=== PATIENT | male | born 1975 | race African-American/Black ===

== ENCOUNTER 2016-09-03 14:55 | Emergency (ER) | payer SELFPAY ==
[~2016-09-03] VITALS: Ht 185.4 cm; Wt 87.2 kg
[2016-09-03 14:56] VITALS: BP 136/87; PULSE 70; RESP 14; TEMP 98.2; O2SAT 98
--- NOTE | 2016-09-03 15:11 | PD ---
HPI . "I want HIV testing" Chief Complaint: Medical Clearance Time Seen by Provider: 15:09 Travel History International Travel<30 days: No Contact w/Intl Traveler<30days: No Traveled to known affect area: No History of Present Illness HPI 40-year-old male with no significant medical history here requesting HIV testing. Patient tells me has not been tested in the last 6 months and he usually will have testing done every 6 months. He is requesting HIV test. He has no complaints. He has no exposure issues. He tells me he feels good. History Past Medical Histgory Hx Cancer: No Hx Chemotherapy: No Hx Radiation Therapy: No Social History Alcohol Use: Yes (socially) Tobacco Use: Yes (1 ppd) Allergies-Medications (Allergen,Severity, Reaction): Coded Allergies: No Known Allergies (Unverified , 09/03/16) Reported Meds & Prescriptions Reported Meds & Active Scripts Active No Active Prescriptions or Reported Medications Review of Systems General / Constitutional: No: Fever Eyes: No: Visual changes HENT: No: Headaches Cardiovascular: No: Chest Pain or Discomfort Respiratory: No: Shortness of Breath Gastrointestinal: No: Abdominal Pain Genitourinary: No: Dysuria Musculoskeletal: No: Pain Skin: No Rash Neurologic: No: Weakness Psychiatric: No: Depression Endocrine: No: Polydipsia Hematologic/Lymphatic: No: Easy Bruising Physical Exam Narrative GENERAL: AAO x 3, no acute distress, Well-nourished, well-developed patient. SKIN: Warm and dry. No visible rashes or bruising. HEAD: Normocephalic and atraumatic. EYES: No scleral icterus. No injection or drainage. ENT: No nasal drainage noted. Mucous membranes pink. Airway patent. NECK: Supple, trachea midline. No JVD. CARDIOVASCULAR: Regular rate and rhythm without murmurs, gallops, or rubs. RESPIRATORY: Breath sounds equal bilaterally. No accessory muscle use. No rhonchi or rales. GASTROINTESTINAL:normal visual inspection. EXTREMITIES: No cyanosis or edema. BACK: Nontender without obvious deformity. No CVA tenderness. PSYCH: AAO x 3, normal affect. Data Data Last Documented VS Vital Signs Date Time Temp Pulse Resp B/P Pulse Ox O2 Delivery O2 Flow Rate FiO2 09/03/16 14:56 98.2 70 14 136/87 98 MDM Medical Screen Exam Complete: Yes Emergency Medical Condition: No Differential Diagnosis STD screening, Narrative Course 40-year-old male with no significant medical history here requesting HIV testing. Patient tells me has not been tested in the last 6 months and he usually will have testing done every 6 months. He is requesting HIV test. He has no complaints. He has no exposure issues. He tells me he feels good. A medical screening exam was performed: At the time of evaluation the presenting medical condition was determined not to be of an emergent nature. The patient was given the option of receiving additional care, but declined. Patient was given options for additional community resources from which to obtain care. The Patient Has Been advised to seek medical attention for their presenting complaint. The patient has been advised to return to the ER at any time if an emergent condition develops. Primary Impression: Encounter for medical screening examination Scripts No Active Prescriptions or Reported Meds Condition: Stable Janis Lopez Sep 03, 2016 15:11
== END 2016-09-03 15:25 | disposition left against medical advice (07) ==
LOC: NEPB 14:55
DX: Z13.89 Encounter for screening for other disorder (principal)
CPT/HCPCS: 99281